=== PATIENT | male | born 1975 | race Caucasian/White ===

== ENCOUNTER 2018-09-02 13:12 | Emergency (ER) | payer OTHER ==
[~2018-09-02] VITALS: Ht 177.8 cm; Wt 158.8 kg
[2018-09-02 13:52] VITALS: BP 167/107; Ht 177.8 cm; Wt 158.8 kg
== END 2018-09-02 15:13 | disposition home or self-care (01) ==
LOC: ED 13:12
DX: M62.830 Muscle spasm of back (principal); J45.909 Unspecified asthma, uncomplicated; I10 Essential (primary) hypertension; E66.9 Obesity, unspecified; Z88.6 Allergy status to analgesic agent
CPT/HCPCS: J1885

== ENCOUNTER 2019-03-15 14:45 | Emergency (ER) | payer OTHER ==
[~2019-03-15] VITALS: Ht 177.8 cm; Wt 161.9 kg
[2019-03-15 15:02] VITALS: Ht 177.8 cm; Wt 161.9 kg
[2019-03-15 17:52] VITALS: BP 149/99
== END 2019-03-15 17:52 | disposition home or self-care (01) ==
LOC: ED 14:45
DX: J45.901 Unspecified asthma with (acute) exacerbation (principal); J18.9 Pneumonia, unspecified organism; E66.9 Obesity, unspecified; G89.29 Other chronic pain; M54.9 Dorsalgia, unspecified; F32.9 Major depressive disorder, single episode, unspecified; F41.9 Anxiety disorder, unspecified; I10 Essential (primary) hypertension; Z68.43 Body mass index [BMI] 50.0-59.9, adult; Z88.6 Allergy status to analgesic agent
CPT/HCPCS: J0696; J7512; J7613

== ENCOUNTER 2019-03-19 11:02 | Emergency (ER) | payer OTHER ==
[~2019-03-19] VITALS: Ht 177.8 cm; Wt 162.4 kg
[2019-03-19 11:03] VITALS: BP 162/107; Ht 177.8 cm; Wt 162.4 kg
== END 2019-03-19 12:06 | disposition left against medical advice (07) ==
LOC: ED 11:02
DX: Z53.21 Procedure and treatment not carried out due to patient leaving prior to being seen by health care provider (principal)

== ENCOUNTER 2019-04-19 09:19 | Emergency (ER) | payer OTHER ==
[~2019-04-19] VITALS: Ht 188 cm; Wt 161.5 kg
[2019-04-19 09:26] VITALS: Ht 188 cm; Wt 161.5 kg
[2019-04-19 11:06] VITALS: BP 144/87
== END 2019-04-19 11:18 | disposition home or self-care (01) ==
LOC: ED 09:19
DX: R20.2 Paresthesia of skin (principal); T78.1XXA Other adverse food reactions, not elsewhere classified, initial encounter; I10 Essential (primary) hypertension; J45.909 Unspecified asthma, uncomplicated; G89.29 Other chronic pain; M54.9 Dorsalgia, unspecified; Z88.6 Allergy status to analgesic agent; X58.XXXA Exposure to other specified factors, initial encounter

== ENCOUNTER 2019-05-13 13:45 | Emergency (ER) | payer OTHER ==
[~2019-05-13] VITALS: Ht 177.8 cm; Wt 160.6 kg
[2019-05-13 13:54] VITALS: BP 182/99; Ht 177.8 cm; Wt 160.6 kg
== END 2019-05-13 16:45 | disposition left against medical advice (07) ==
LOC: ED 13:45
DX: Z53.21 Procedure and treatment not carried out due to patient leaving prior to being seen by health care provider (principal)

== ENCOUNTER 2019-05-13 19:05 | Emergency (ER) | payer OTHER ==
[~2019-05-13] VITALS: Ht 177.8 cm; Wt 160.1 kg
[2019-05-13 19:16] VITALS: Ht 177.8 cm; Wt 160.1 kg
[2019-05-13 21:01] VITALS: BP 113/97
== END 2019-05-13 21:01 | disposition home or self-care (01) ==
LOC: ED 19:05
DX: T78.40XA Allergy, unspecified, initial encounter (principal); I10 Essential (primary) hypertension; J45.909 Unspecified asthma, uncomplicated; G89.29 Other chronic pain; M54.9 Dorsalgia, unspecified; Z88.6 Allergy status to analgesic agent

== ENCOUNTER 2019-05-14 14:38 | Emergency (ER) | payer OTHER ==
[~2019-05-14] VITALS: Ht 208.3 cm; Wt 160.1 kg
[2019-05-14 14:41] VITALS: Ht 208.3 cm; Wt 160.1 kg
[2019-05-14 16:45] VITALS: BP 136/87
== END 2019-05-14 16:45 | disposition home or self-care (01) ==
LOC: ED 14:38
DX: F41.9 Anxiety disorder, unspecified (principal); J45.909 Unspecified asthma, uncomplicated; I10 Essential (primary) hypertension; G89.29 Other chronic pain; M54.9 Dorsalgia, unspecified

== ENCOUNTER 2019-05-18 12:30 | Emergency (ER) | payer OTHER ==
[~2019-05-18] VITALS: Ht 177.8 cm; Wt 159.7 kg
[2019-05-18 12:37] VITALS: Ht 177.8 cm; Wt 159.7 kg
[2019-05-18 13:53] LABS: CHLORIDE SERUM 101 mmol/L (98-107); SODIUM SERUM 138 mmol/L (136-145)
[2019-05-18 13:54] LABS: ALBUMIN 3.7 g/dL (3.4-5.0); ALT/SGPT 90 U/L (16-63); AST/SGOT 51 U/L (15-37); BILIRUBIN TOTAL 0.7 mg/dL (0.20-1.00); CALCIUM 9.1 mg/dL (8.5-10.1); CARBON DIOXIDE 31.5 mmol/L (21-32); CREATININE SERUM 0.8 mg/dL (0.7-1.3); GFR1 > 60 mL/min; GLUCOSE SERUM 140 mg/dL (74-106)
[2019-05-18 13:55] LABS: ALKALINE PHOSPHATASE 103 U/L (46-116); LIPASE 141 IU/L (73-393)
[2019-05-18 14:03] LABS: BASOPHIL % 0.8 % (0-2); PLATELET COUNT 242 x10^3mcL (130-400); RED CELL DISTRIBUTION WIDTH 12.9 % (11.5-14.5)
[2019-05-18 18:28] VITALS: BP 128/78
== END 2019-05-18 18:28 | disposition home or self-care (01) ==
LOC: ED 12:30
PROVIDERS: Emergency Medicine
DX: R10.814 Left lower quadrant abdominal tenderness (principal); R11.0 Nausea; J45.909 Unspecified asthma, uncomplicated; I10 Essential (primary) hypertension; G89.29 Other chronic pain; Z88.6 Allergy status to analgesic agent
CPT/HCPCS: 36415; Q0162

== ENCOUNTER 2019-06-28 21:11 | Emergency (ER) | payer OTHER ==
[~2019-06-28] VITALS: Ht 177.8 cm; Wt 159.8 kg
[2019-06-28 22:47] LABS: BASOPHIL % 0.4 % (0-2); PLATELET COUNT 212 x10^3mcL (130-400)
[2019-06-28 22:51] LABS: CALCIUM 8.8 mg/dL (8.5-10.1); CHLORIDE SERUM 103 mmol/L (98-107); CREATININE SERUM 0.8 mg/dL (0.7-1.3); GFR1 > 60 mL/min; GLUCOSE SERUM 106 mg/dL (74-106); POTASSIUM SERUM 3.3 mmol/L (3.5-5.1); SODIUM SERUM 139 mmol/L (136-145)
[2019-06-28 22:55] LABS: ALBUMIN 3.9 g/dL (3.4-5.0); ALKALINE PHOSPHATASE 112 U/L (46-116); ALT/SGPT 53 U/L (16-63); AST/SGOT 30 U/L (15-37); BILIRUBIN TOTAL 0.5 mg/dL (0.20-1.00); TOTAL PROTEIN, SERUM 7.9 g/dL (6.4-8.2)
[2019-06-29 01:01] VITALS: BP 133/85
== END 2019-06-29 01:01 | disposition home or self-care (01) ==
LOC: ED 21:11
PROVIDERS: Emergency Medicine
DX: T78.40XA Allergy, unspecified, initial encounter (principal); R07.89 Other chest pain; J45.909 Unspecified asthma, uncomplicated; I10 Essential (primary) hypertension; Z88.6 Allergy status to analgesic agent; X58.XXXA Exposure to other specified factors, initial encounter
CPT/HCPCS: 36415; J7512

== ENCOUNTER 2019-06-30 02:00 | Emergency (ER) | payer OTHER ==
[~2019-06-30] VITALS: Ht 177.8 cm; Wt 161.9 kg
[2019-06-30 02:05] VITALS: Ht 177.8 cm; Wt 161.9 kg
[2019-06-30 02:58] LABS: BASOPHIL % 0.6 % (0-2); PLATELET COUNT 212 x10^3mcL (130-400); RED CELL DISTRIBUTION WIDTH 13.1 % (11.5-14.5)
[2019-06-30 04:16] LABS: CALCIUM 9.2 mg/dL (8.5-10.1); CARBON DIOXIDE 28.1 mmol/L (21-32); CHLORIDE SERUM 102 mmol/L (98-107); CREATININE SERUM 0.8 mg/dL (0.7-1.3); GFR1 > 60 mL/min; GLUCOSE SERUM 106 mg/dL (74-106); POTASSIUM SERUM 3.5 mmol/L (3.5-5.1); SODIUM SERUM 138 mmol/L (136-145)
[2019-06-30 04:21] LABS: ALBUMIN 3.7 g/dL (3.4-5.0); ALKALINE PHOSPHATASE 105 U/L (46-116); ALT/SGPT 48 U/L (16-63); AST/SGOT 36 U/L (15-37); BILIRUBIN TOTAL 0.84 mg/dL (0.20-1.00); TOTAL PROTEIN, SERUM 7.1 g/dL (6.4-8.2)
[2019-06-30 05:04] VITALS: BP 139/76
== END 2019-06-30 05:04 | disposition home or self-care (01) ==
LOC: ED 02:00
PROVIDERS: Emergency Medicine
DX: G47.30 Sleep apnea, unspecified (principal); E66.01 Morbid (severe) obesity due to excess calories; F41.9 Anxiety disorder, unspecified; F32.9 Major depressive disorder, single episode, unspecified; G89.29 Other chronic pain; M54.9 Dorsalgia, unspecified; I10 Essential (primary) hypertension
CPT/HCPCS: 36415; 87804; Q0092

== ENCOUNTER 2019-07-02 10:22 | Emergency (ER) | payer OTHER | END 2019-07-02 11:16 | disposition left against medical advice (07) | LOC: ED 10:22 | DX: Z53.21 Procedure and treatment not carried out due to patient leaving prior to being seen by health care provider (principal) ==

== ENCOUNTER 2019-08-01 19:42 | Emergency (ER) | payer OTHER ==
[~2019-08-01] VITALS: Ht 177.8 cm; Wt 159.7 kg
[2019-08-01 19:45] VITALS: Ht 177.8 cm; Wt 159.7 kg
[2019-08-01 21:47] VITALS: BP 144/90
== END 2019-08-01 21:46 | disposition home or self-care (01) ==
LOC: ED 19:42
DX: R07.0 Pain in throat (principal); K13.79 Other lesions of oral mucosa; R06.02 Shortness of breath; J45.909 Unspecified asthma, uncomplicated; G89.29 Other chronic pain; I10 Essential (primary) hypertension; Z88.6 Allergy status to analgesic agent; Z13.89 Encounter for screening for other disorder
CPT/HCPCS: Q0092